=== PATIENT | female | born 1970 ===

== ENCOUNTER 2017-06-06 12:06 | Emergency (ER) | payer OTHER ==
[~2017-06-06] VITALS: Ht 160 cm; Wt 52.6 kg
[2017-06-06 12:09] VITALS: Ht 160 cm; Wt 52.6 kg
[2017-06-06 12:58] VITALS: BP 138/92
== END 2017-06-06 12:58 | disposition home or self-care (01) ==
LOC: ED 12:06
DX: F41.8 Other specified anxiety disorders (principal); F32.9 Major depressive disorder, single episode, unspecified; Z76.0 Encounter for issue of repeat prescription